=== PATIENT | female | born 1995 | race Caucasian/White ===

== ENCOUNTER 2017-01-14 13:23 | Emergency (ER) | payer OTHER ==
[2017-01-14 15:36] VITALS: BP 98/65
--- NOTE | 2017-01-14 17:37 | ED ---
Laceration/Wound HPI - HPI Summary HPI Summary: Patient presents to the ED with a laceration to the left webspacing of the hand from a door. Denies numbness, tingling, color or temperature changes. Denies pain. Injury occurred approximately 1 hour prior to arrival. Last tetanus within 5 years ago. Denies other injuries. The laceration measures 2.5cm, is moderately deep and width is .5cm. Bleeding is controlled at arrival to the ED. Denies other symptoms. - History of Current Complaint Stated Complaint: RT HAND LAC Time Seen by Provider: 01/14/17 14:08 Hx Obtained From: Patient Mechanism of Injury: Sharp/Blunt Trauma Onset/Duration: Sudden Onset Aggravating: Movement Alleviating: Compression Timing: Constant Onset Severity: Mild Current Severity: Mild Pain Intensity: 4 Pain Scale Used: 0-10 Numeric Associated Signs & Symptoms: Negative Related Hx: Dominant Hand (Right) - Allergy/Home Medications Allergies/Adverse Reactions: Allergies Allergy/AdvReac Type Severity Reaction Status Date / Time No Known Allergies Allergy Verified 02/02/16 13:12 PMH/Surg Hx/FS Hx/Imm Hx Previously Healthy: Yes Endocrine/Hematology History: Denies: Hx Diabetes Cardiovascular History: Denies: Hx Hypertension, Hx Pacemaker/ICD History: Denies: Hx Renal Disease Sensory History: Denies: Hx Hearing Aid Psychiatric History: Denies: Hx Panic Disorder - Surgical History Surgery Procedure, Year, and Place: knee - Immunization History Hx Pertussis Vaccination: No Immunizations Up to Date: Unable to Obtain/Confirm Infectious Disease History: No Infectious Disease History: Denies: Traveled Outside the [place] in Last 30 Days - Family History Known Family History: Negative: Cardiac Disease - Social History Occupation: Student Lives: With Family Alcohol Use: Occasionally Hx Substance Use: No Substance Use Type: Reports: None Smoking Status (MU): Never Smoked Tobacco Review of Systems Constitutional: Negative Negative: Fever, Chills, Fatigue Cardiovascular: Negative Respiratory: Negative Genitourinary: Negative Positive: no symptoms reported, see HPI Musculoskeletal: Negative Neurological: Negative Psychological: Normal All Other Systems Reviewed And Are Negative: Yes Physical Exam Triage Information Reviewed: Yes Vital Signs On Initial Exam: Initial Vitals Temp Pulse Resp BP Pulse Ox 97.6 F 73 20 124/68 94 01/14/17 13:41 01/14/17 13:41 01/14/17 13:41 01/14/17 13:41 01/14/17 13:41 Vital Signs Reviewed: Yes Appearance: Positive: Well-Appearing, Well-Nourished Skin: Positive: Warm, Skin Color Reflects Adequate Perfusion Head/Face: Positive: Normal Head/Face Inspection Eyes: Positive: EOMI, GILMAR, Conjunctiva Clear Neck: Positive: Supple, No Lymphadenopathy Respiratory/Lung Sounds: Positive: Clear to Auscultation, Breath Sounds Present Cardiovascular: Positive: Normal, RRR, Pulses are Symmetrical in both Upper and Lower Extremities Musculoskeletal: Positive: Normal, Strength/ROM Intact Neurological: Positive: Sensory/Motor Intact, Alert, Oriented to Person Place, Time, Speech Normal Psychiatric: Positive: Normal - Syed Coma Scale Coma Scale Total: 15 Procedures - Laceration/Wound Repair 1 Location: upper extremity Description: Linear Betadine Prep?: No Laceration/Wound Explored: clean Debridement: minimal Suture Type: Prolene Layer Closure?: No Sterile Dressing Applied?: Yes Diagnostics - Vital Signs Vital Signs Temp Pulse Resp BP Pulse Ox 01/14/17 15:35 97.9 F 71 18 98/65 100 01/14/17 13:41 97.6 F 73 20 124/68 94 - Laboratory Lab Statement: Any lab studies that have been ordered have been reviewed, and results considered in the medical decision making process. Laceration Repair Course/Dx - Course Course Of Treatment: Timeout obtained. Cleansed wound. Irrigated with 20CC's normal. saline. Lidocaine without epi as local anesthetic - 2ml. 4-0. non- absorbable prolene. 7 sutures placed using simple interrupted. technique. Patient tolerated well. Cleaned and dressed wound with. telfa dressing. NV exam WNL. Sutures out in 6 days. Return. precautions given. Patient OK with discharge. Wrapped with telfa and gauze. - Clinical Impression Provider Diagnoses: Laceration of hand Discharge - Discharge Plan Condition: Stable Disposition: HOME Patient Education Materials: Laceration (ED) Referrals: [facility] - Tello ACEVEDO [Primary Care Provider] - Additional Instructions: Suture removal in 6 days. Keep the area covered x 24 hours then leave open to air Images - Images Hands: 1 - nelly
== END 2017-01-14 15:35 | disposition home or self-care (01) ==
LOC: ED 13:23
DX: S61.412A Laceration without foreign body of left hand, initial encounter (principal); W26.8XXA Contact with other sharp object(s), not elsewhere classified, initial encounter; Y93.9 Activity, unspecified; Y92.9 Unspecified place or not applicable
CPT/HCPCS: 12001; 99282

== ENCOUNTER → 2017-08-03 | Day surgery (SDC) | payer OTHER ==
[~2017-08-03] MED LIST: Bupivacaine 0.25% SDV* 30 ML ONE; Dexamethasone IV* 4 MG/ML 1 ML (4 MG) ONE; DiMENhydriNATE IV* 50 MG/ML VIAL IV PUSH PRN; HYDROcodone/ACETAMIN 5-325 MG* 1 TAB ONE; HYDROcodone/ACETAMIN 5-325 MG* 1 TAB PO PRN; Ketorolac INJ* 30 MG/ML 1 ML VIAL ONE; Lidocaine 2% PF * 5 ML VIAL ONE; Midazolam* 1 MG/ML 2 ML VIAL (2 MG) ONE; Mivacurium Chloride* 20 MG/10 ML VIAL IV ONE; Morphine INJ* 10 MG/ML 1 ML CARPUJECT IV ONE; Morphine VIAL* 4 MG/ML VIAL (1 ml vial) IV ONE; Naloxone* 0.4 MG/ML 1 ML VIAL IV PRN; Ondansetron INJ* 2 MG/ML VIAL IV PRN; Ondansetron INJ* 2 MG/ML VIAL ONE; Ondansetron ODT TAB* 4 MG PO ONE; Propofol* 10 MG/ML 20 ML BTL IV PUSH ONE; Sodium Citrate/Citric Acid* 15 ML UDC ONE; Sodium Citrate/Citric Acid* 15 ML UDC PO ONE; ceFOXitin(*) 1 GM VIAL ONE; ceFOXitin(*) 2 GM in NS 0.9% 50 ML* 50 ML IVPB ONE; fentaNYL* 50 MCG/ML 2 ML VIAL (100 MCG VIAL) IV PRN; fentaNYL* 50 MCG/ML 2 ML VIAL (100 MCG VIAL) ONE; oxyCODONE/Acetamin 5/325 MG* TAB PO PRN
[2017-08-03 14:47] LABS: Hematocrit 36 % (35-47); Hemoglobin 11.2 g/dl (12.0-16.0); Mean Corpuscular HGB Conc 32 g/dl (31-36); Mean Corpuscular Hemoglobin 23 pg (27-31); Mean Corpuscular Volume 73 fL (80-97); Mean Platelet Volume 7.9 um3 (7.4-10.4); Platelet Count 282 10^3/ul (150-450); Red Blood Count 4.83 10^6/ul (4.0-5.4); Red Cell Distribution Width 16 % (10.5-15); White Blood Count 5.2 10^3/ul (3.5-10.8)
[2017-08-03 14:56] LABS: EGFR Non-African American 86.4 (>60)
[2017-08-03 15:23] LABS: ABS Basophils 0 10^3/ul (0-0.2); ABS Eosinophils 0.2 10^3/ul (0-0.6); ABS Lymphocytes 1.7 10^3/ul (1.0-4.8); ABS Monocytes 0.4 10^3/ul (0-0.8); ABS Neutrophils 2.8 10^3/ul (1.5-7.7); ABS Nucleated RBC 0 10^3/ul; Eosinophil % 4.1 % (0-6); Nucleated Red Blood Cells % 0.1
--- NOTE | 2017-08-03 16:33 | RAD ---
HISTORY: Right lower quadrant pain COMPARISONS: None TECHNIQUE: Multiple transverse and longitudinal ultrasound images were obtained of the pelvis using grayscale, color Doppler, and spectral Doppler imaging using the endovaginal transducer. FINDINGS: UTERUS: The uterus measures 6.4 x 2.6 x 3.3 cm. The uterus is normal in shape, size, contour, and echotexture. ENDOMETRIUM: The endometrial stripe is smooth. The endometrium measures 0.2 cm in thickness. CUL-DE-SAC: There is no free fluid within the cul-de-sac. RIGHT OVARY: The right ovary measures 3.1 by 2 x 2.3 cm. Normal arterial and venous waveforms are identifiable within the ovary on spectral Doppler imaging. LEFT OVARY: The left ovary measures 3.1 x 2 x 1.9 cm. Normal arterial and venous waveforms are identifiable within the ovary on spectral Doppler imaging. BLADDER: The bladder is not well visualized. OTHER: None IMPRESSION: UNREMARKABLE ULTRASOUND OF THE PELVIS. NO SONOGRAPHIC FEATURES OF TORSION. PLEASE NOTE THAT PARTIAL OR INTERMITTENT TORSION MAY BE SONOGRAPHICALLY NORMAL.
--- NOTE | 2017-08-03 17:22 | RAD ---
HISTORY: Right lower quadrant pain COMPARISONS: None TECHNIQUE: Multiple transverse and longitudinal ultrasound images were obtained of the right lower quadrant using grayscale and color Doppler imaging. FINDINGS: The appendix is identified. The appendix measures up to 0.7 cm in caliber and is noncompressible. There is mild hyperemia. IMPRESSION: MILDLY HYPEREMIC AND MILDLY DILATED APPENDIX CONCERNING FOR EARLY ACUTE APPENDICITIS IN THE CORRECT CLINICAL SETTING.
[2017-08-03] MEDS: NS 0.9% 1000 ML* 2,000 ML IV ONE (17:48)
--- NOTE | 2017-08-03 18:30 | ED ---
Fabiola Rey Gabriel, scribed for Angel Sanchez MD on 08/03/17 at 1529 . Abdominal Pain/Female - HPI Summary HPI Summary: This patient is a 22 year old F presenting to [facility] accompanied by her friend with a chief complaint of RLQ pain that began yesterday. Pt was seen at [facility] and sent her to r/o appendicitis. The patient rates the pain 6/10 in severity. Symptoms aggravated by palpation. Patient reports fever, nausea, vomiting, chills, decreased appetite, diarrhea, and mild back pain. Patient denies unusual vaginal discharge and dysuria. Pt is currently menstruating. - History of Current Complaint Chief Complaint: EDAbdPain Stated Complaint: ABD PAIN Time Seen by Provider: 08/03/17 15:22 Hx Obtained From: Patient Onset/Duration: Lasting Days - 1, Still Present Timing: Constant Severity Initially: Severe Severity Currently: Severe Pain Intensity: 7 Pain Scale Used: 0-10 Numeric Location: Discrete At: RLQ Radiates: Yes Radiates to: Back Aggravating Factor(s): Other: - pressure Associated Signs and Symptoms: Positive: Negative - unusual vaginal discharge and dysuria, Other: - fever, nausea, vomiting, chills, decreased appetite, diarrhea, and mild back pain. Allergies/Adverse Reactions: Allergies Allergy/AdvReac Type Severity Reaction Status Date / Time No Known Allergies Allergy Verified 02/02/16 13:12 Home Medications: Home Medications FLUoxetine CAP* [PROzac CAP*] 20 mg PO DAILY 08/03/17 [History Confirmed ] Norgestimate-Eth Estradiol(NF) [Ortho Tri-Cyclen (NF)] 1 tab PO DAILY 08/03/17 [ History Confirmed 08/03/17] PMH/Surg Hx/FS Hx/Imm Hx Endocrine/Hematology History: Denies: Hx Diabetes Cardiovascular History: Denies: Hx Hypertension, Hx Pacemaker/ICD History: Denies: Hx Renal Disease Sensory History: Denies: Hx Hearing Aid Psychiatric History: Denies: Hx Panic Disorder - Surgical History Surgery Procedure, Year, and Place: knee Infectious Disease History: No Infectious Disease History: Denies: Traveled Outside the [place] in Last 30 Days - Family History Known Family History: Negative: Cardiac Disease - Social History Occupation: Student Lives: Dormitory/Roommates Alcohol Use: Occasionally Hx Substance Use: No Substance Use Type: Reports: None Smoking Status (MU): Never Smoked Tobacco Review of Systems Positive: Fever, Chills, Other - decreased appetite Positive: Abdominal Pain, Vomiting, Diarrhea, Nausea Genitourinary: Negative - unusual vaginal discharge Negative: dysuria Positive: Other - mild back pain All Other Systems Reviewed And Are Negative: Yes Physical Exam - Summary Physical Exam Summary: General: well-appearing, no pain distress Skin: warm, color reflects adequate perfusion, dry Head: normal Eyes: EOMI, GILMAR ENT: normal Neck: supple, nontender Respiratory: CTA, breath sounds present Cardiovascular: RRR Abdomen: TTP in RLQ Bowel: present Musculoskeletal: normal, strength/ROM intact Neurological: normal, sensory/motor intact, A&O x3 Psychological: affect/mood appropriate Triage Information Reviewed: Yes Vital Signs On Initial Exam: Initial Vitals Temp Pulse Resp BP Pulse Ox 98.0 F 72 17 107/69 99 08/03/17 14:00 08/03/17 14:00 08/03/17 14:00 08/03/17 14:00 08/03/17 14:00 Vital Signs Reviewed: Yes Diagnostics - Vital Signs Vital Signs Temp Pulse Resp BP Pulse Ox 08/03/17 14:00 98.0 F 72 17 107/69 99 - Laboratory Lab Results: Lab Results 08/03/17 08/03/17 08/03/17 Range/Units 14:30 14:30 14:30 WBC 5.2 (3.5-10.8) 10^3/ul RBC 4.83 (4.0-5.4) 10^6/ul Hgb 11.2 L (12.0-16.0) g/dl Hct 36 (35-47) % MCV 73 L (80-97) fL MCH 23 L (27-31) pg MCHC 32 (31-36) g/dl RDW 16 H (10.5-15) % Plt Count 282 (150-450) 10^3/ul MPV 7.9 (7.4-10.4) um3 Neut % (Auto) 54.0 (38-83) % Lymph % (Auto) 33.0 (25-47) % [place] % (Auto) 8.0 H (0-7) % Eos % (Auto) 4.1 (0-6) % Baso % (Auto) 0.9 (0-2) % Absolute Neuts (auto) 2.8 (1.5-7.7) 10^3/ul Absolute Lymphs (auto) 1.7 (1.0-4.8) 10^3/ul Absolute Monos (auto) 0.4 (0-0.8) 10^3/ul Absolute Eos (auto) 0.2 (0-0.6) 10^3/ul Absolute Basos (auto) 0 (0-0.2) 10^3/ul Absolute Nucleated RBC 0 10^3/ul Nucleated RBC % 0.1 Hypochromasia 1+ Anisocytosis 1+ Microcytosis 2+ Sodium 138 L (139-145) mmol/L Potassium 4.3 (3.5-5.0) mmol/L Chloride 105 (101-111) mmol/L Carbon Dioxide 26 (22-32) mmol/L Anion Gap 7 (2-11) mmol/L BUN 10 (6-24) mg/dL Creatinine 0.84 (0.51-0.95) mg/dL Est GFR ( Amer) 111.2 (>60) Est GFR (Non-Af Amer) 86.4 (>60) BUN/Creatinine Ratio 11.9 (8-20) Glucose 88 (70-100) mg/dL Lactic Acid 0.5 (0.5-2.0) mmol/L Calcium 9.3 (8.6-10.3) mg/dL Total Bilirubin 0.30 (0.2-1.0) mg/dL AST 18 (13-39) U/L ALT 10 (7-52) U/L Alkaline Phosphatase 40 (34-104) U/L C-Reactive Protein 63.45 H (< 5.00) mg/L Total Protein 7.3 (6.4-8.9) g/dL Albumin 4.1 (3.2-5.2) g/dL Globulin 3.2 (2-4) g/dL Albumin/Globulin Ratio 1.3 (1-3) Lipase < 10 L (11.0-82.0) U/L Beta HCG, Quant < 0.60 mIU/mL Result Diagrams: 08/03/17 14:30 08/03/17 14:30 Lab Statement: Any lab studies that have been ordered have been reviewed, and results considered in the medical decision making process. - Additional Comments Diagnostic Additional Comments: Tansvaginal US reveals, per radiologist, UNREMARKABLE ULTRASOUND OF THE PELVIS. NO SONOGRAPHIC FEATURES OF TORSION. PLEASE NOTE THAT PARTIAL OR INTERMITTENT TORSION MAY BE SONOGRAPHICALLY NORMAL. ED physician has reviewed this radiology report. Appendix US reveals, per radiologist, MILDLY HYPEREMIC AND MILDLY DILATED APPENDIX CONCERNING FOR EARLY ACUTE APPENDICITIS IN THE CORRECT CLINICAL SETTING. ED physician has reviewed this radiology report. Abdominal Pain Fem Course/Dx - Course Course Of Treatment: CAROLYNN HUNT, SAW THE PATIENT IN ED. ADMIT SURGERY. - Diagnoses Provider Diagnoses: Appendicitis - Provider Notifications Discussed Care Of Patient With: Nestor Fulton Time Discussed With Above Provider: 17:38 Instructed by Provider To: Other - We discussed patient care with Dr. Fulton and they will come and consult on the patient. Discharge - Sign-Out/Discharge Documenting (check all that apply): Discharge/Admit/Transfer - Discharge Plan Condition: Stable Disposition: ADMITTED TO [facility] Referrals: [facility] - Tello ACEVEDO [Primary Care Provider] - - Billing Disposition and Condition Condition: STABLE [place] [place] The documentation as recorded by the Fabiola cowart Gabriel accurately reflects the service I personally performed and the decisions made by me, Angel Sanchez MD.
--- NOTE | 2017-08-03 18:54 | PN ---
Progress Note - Progress Note Date of Service: 08/03/17 Note: Pre-op Pt seen and examined. Abd--soft, RLQ peritoneal findings, Rovsing sign, percussion tenderness Picture c/w early acute appendicitis Discussed fully, pros/cons/risks of surgery, poss non-op treatment She would like to proceed with lap appy. I agree w/ H&P.
[2017-08-03] MEDS: fentaNYL* 50 MCG/ML 2 ML VIAL (100 MCG VIAL) IV PRN ×2 (19:55→20:14)
--- NOTE | 2017-08-03 20:40 | HP ---
CC: [facility] * ADMISSION HISTORY AND PHYSICAL: DATE OF ADMISSION: 08/03/17 This patient was seen on , 08/03/17 in the emergency department. ATTENDING SURGEON: Nestor Fulton MD * (DICTATED BY JUD MOLINA NP) CHIEF COMPLAINT: Worsening right lower quadrant abdominal pain. HISTORY OF PRESENT ILLNESS: The patient is a 22-year-old [employer] student, who had the onset of right lower quadrant abdominal pain yesterday. She felt nauseated, but she did not vomit. She felt bloated. She does have her menstrual period and thought the symptoms were related to the period and took some Midol without relief. She had a loose bowel movement last evening; she denies any fever or chills or dysuria. In the emergency department, she underwent appendix ultrasound, which revealed a mildly hyperemic and mildly dilated appendix concerning for early acute appendicitis. Her white blood cell count was normal at 5.2 and the CRP was elevated at 63.45. PAST MEDICAL HISTORY: Generally healthy, no acute or chronic diseases. PAST SURGICAL HISTORY: Bilateral knee procedures for torn meniscus about 3 years ago. MEDICATIONS: Include: 1. Ortho Tri-Cyclen. 2. Prozac. ALLERGIES: No known drug allergies. FAMILY HISTORY: Father had appendicitis. SOCIAL HISTORY: She is a student at [employer] in the [employer]; she is a nonsmoker. She denies the use of substances and drinks alcohol socially. REVIEW OF SYSTEMS: Constitutional: No fever or chills. No excessive fatigue. Endocrine: No diabetes or thyroid disease. Respiratory: No chronic cough or dyspnea on exertion. Cardiovascular: No anginal chest pain or palpitations. Gastrointestinal: As described in history of present illness. Negative for early satiety or acid reflux or blood in stool. Genitourinary: No dysuria. Musculoskeletal: Normal. Negative for joint or back pain. Neurologic: Normal. No blurred vision or headache. General: No previous anesthesia complications. No history of deep vein thrombosis or pulmonary embolism. No bleeding tendencies. No blood transfusions. PHYSICAL EXAMINATION GENERAL SURVEY: The patient is a 22-year-old female, well developed, well nourished, in no acute distress. VITAL SIGNS: Height 64 inches, weight 124 pounds, body mass index 21.3. Blood pressure 111/69, pulse 54 and regular, respiratory rate 18, temperature 98, O2 saturation 100% on room air. HEENT: Benign. NECK: Supple. No cervical lymphadenopathy. LUNGS: Breath sounds bilaterally clear and equal. HEART: Regular rate and rhythm. No murmurs or rubs. ABDOMEN: Quite, soft, nondistended, exquisitely tender in the right lower quadrant. There is rebound tenderness and mild guarding. No obvious masses or organomegaly or evidence of umbilical hernia. MUSCULOSKELETAL: Full range of motion. Nontender calves. NEUROLOGIC: Alert and oriented x3. SKIN: Warm, dry, and intact. IMPRESSION: Acute appendicitis. PLAN: Per Dr. Fulton, the patient will go to the OR this evening for a laparoscopic appendectomy. Dr. Fulton discussed the nature of the surgical procedure, the rationale for the procedure, the relevant risks and benefits, and the usual postoperative recovery. All of her questions were answered. She is willing to proceed with surgery. TIME SPENT: Sixty minutes with greater than 50% in [id number] history taking and coordination of care. JUD MOLINA NP [id number]/[facility] #: [id number] HERB
[2017-08-03 20:46] VITALS: BP 113/74
--- NOTE | 2017-08-04 12:32 | OP ---
CC: Dr. Nestor Fulton; [facility] OPERATIVE REPORT: DATE OF OPERATION: 08/03/17 DATE OF : [birth year] SURGEON: Nestor Fulton MD TISSUE INSERTER: None. ANESTHESIOLOGIST: Corey Kendrick MD ANESTHESIA: General anesthetic, local infiltration. PRE-OP DIAGNOSIS: Appendicitis. POST-OP DIAGNOSIS: Appendicitis. OPERATIVE PROCEDURE: Laparoscopic appendectomy. DESCRIPTION OF PROCEDURE: The patient was supine on the operating table. After adequate general ane sthetic, compression stockings, Suni Hugger warmer, and intravenous antibiotics, the abdomen was prep ped with antiseptic and draped in a sterile fashion. Small umbilical incision was created. A blunt port cannula was placed. Insufflation was carried out with carbon dioxide. Additional cannulae, 5 m m, midline and suprapubic to the left of midline, were placed through small stab wounds under direct vision. The appendix was visualized and the distal half was inflamed and indurated and hyperemic. T he base of the appendix was not inflamed. There was no purulence. No evidence of suppurative change or abscess. No perforation. The base of the appendix and mesoappendix were divided with a single fi ring of an EndoGIA stapler 60-mm hancock cartridge. This created excellent hemostasis. The appendix was placed in retrieval bag and brought out through the umbilical site. Everything was in good conditio n. The cannulae were removed. Pneumoperitoneum was allowed to escape. Umbilical fascia was closed w ith 0 Vicryl and skin with 5-0 Vicryl in all cases followed by Steri-Strips. She tolerated the proce dure well, was awakened, extubated, and brought to Recovery in good condition. There were no complica tions. No drains. Pathologic specimen was appendix. Sponge and instrument counts correct. Estimat ed blood loss 10 mL. [id number]/[facility] #: [id number]
== END | disposition home or self-care (01) ==
LOC: EDSTATUS 05:43 → OR 13:49 → ED 13:49 → OR 18:49 → EDSTATUS 20:19
PROVIDERS: ATTEND Surgery
DX: K35.80 Unspecified acute appendicitis (principal); R10.31 Right lower quadrant pain
CPT/HCPCS: 36415; 76705; 76830; 80053; 83605; 83690; 84702; 85025; 86140; 88304; 99284; A9270-GY; J0694; J1100; J1885; J2250; J2270; J2405; J2704; J3010